=== PATIENT | male | born 1980 | race Two or more races ===

== ENCOUNTER 2019-01-31 23:01 | Emergency (ER) | payer BC, OTHER ==
[~2019-01-31] VITALS: Ht 177.8 cm; Wt 154.4 kg
[2019-02-01 00:39] LABS: BASOPHILS # (AUTO) 0.02 x10^3/uL (0-0.1); BASOPHILS % (AUTO) 0 % (0-1); EOSINOPHILS # (AUTO) 0.35 x10^3/uL (0-0.4); EOSINOPHILS % (AUTO) 3 % (1-7); LYMPHOCYTES # (AUTO) 1.55 x10^3/uL (1-3.4); LYMPHOCYTES % (AUTO) 11 % (22-44); MD NO; MEAN CORPUSCULAR HEMOGLOBIN 31.1 pg (27.5-34.5); MEAN CORPUSCULAR HGB CONC 33.3 g/dL (33.2-36.2); MEAN CORPUSCULAR VOLUME 93.4 fL (81-97); MEAN PLATELET VOLUME 7.5 fL (7.4-10.4); MONOCYTES # (AUTO) 0.65 x10^3/uL (0.2-0.8); MONOCYTES % (AUTO) 5 % (2-9); NEUTROPHILS # (AUTO) 10.98 x10^3/uL (1.8-6.8); NEUTROPHILS % (AUTO) 81 % (42-75); PLATELET COUNT 405 x10^3/uL (130-400); RED BLOOD COUNT 4.86 x10^6/uL (4.38-5.82); RED CELL DISTRIBUTION WIDTH 13.7 % (9.4-14.8)
[2019-02-01 00:50] LABS: ALANINE AMINOTRANSFERASE 36 U/L (12-78); ANION GAP 7 mmol/L (5-15); CALCIUM 9.4 mg/dL (8.5-10.1); CHLORIDE 112 mmol/L (98-107)
[2019-02-01 00:53] LABS: ALKALINE PHOSPHATASE 52 U/L (45-117); BILIRUBIN,TOTAL 0.3 mg/dL (0.2-1.0)
--- NOTE | 2019-02-01 01:17 | NUR ---
URINE SAMPLE SENT. ERP AT PT'S BEDSIDE FOR EVAL
[2019-02-01] MEDS ORDERED: ONDANSETRON 2MG/ML, 2ML IVPush ONE (01:30)
[2019-02-01] MEDS ORDERED: MORPHINE SULFATE 4 MG/ML, 1ML IVPush PRN (01:30)
[2019-02-01] MEDS ORDERED: MORPHINE SULFATE 4 MG/ML, 1ML ONE (01:36)
[2019-02-01] MEDS ORDERED: ONDANSETRON 2MG/ML, 2ML ONE (01:36)
--- NOTE | 2019-02-01 01:40 | NUR ---
PT RESTING ON GURNEY, MONITORS IN PLACE, IV SITE STARTED, PT MEDICATED PER APR, CALL LIGHT WITHIN REACH. AWAITING CT
--- NOTE | 2019-02-01 01:47 | NUR ---
PT TO CT
[2019-02-01] MEDS ORDERED: OMNIPAQUE 350 MG/ML, 150 ML BOTTLE ONE (01:59)
[2019-02-01 02:05] LABS: MICROSCOPIC INDICATED
[2019-02-01 02:06] LABS: CULTURE INDICATED? NO
[2019-02-01] MEDS ORDERED: KETOROLAC 30 MG/1 ML IVPush ONE (02:30)
[2019-02-01] MEDS ORDERED: KETOROLAC 30 MG/1 ML ONE (02:43)
[2019-02-01 03:18] VITALS: BP 130/81
== END 2019-02-01 03:30 | disposition home or self-care (01) ==
LOC: ED 02-01 03:01
DX: N13.2 Hydronephrosis with renal and ureteral calculous obstruction (principal); F17.200 Nicotine dependence, unspecified, uncomplicated; R11.2 Nausea with vomiting, unspecified
CPT/HCPCS: 36415; 74021; 74177; 80053; 81001; 83690; 85025; 96374; 96375; 99284; J1885; J2270; J2405; Q9967

== ENCOUNTER 2019-02-08 07:20 | Emergency (ER) | payer OTHER ==
[~2019-02-08] VITALS: Ht 177.8 cm; Wt 156.8 kg
--- NOTE | 2019-02-08 07:32 | NUR ---
PT AMBULATORY TO ROOM 39 W/ C/O L SIDE FLANK PAIN. STATES HE FEELS "2 DIFFERENT PAINS ON THAT SIDE". PT WAS SEEN HERE AND DX W/ 4 MM KIDNEY STONE ON 02/01/19. PT HAS C/O MID L FLANK PAIN AND NEW C/O GROIN PAIN. PT RESTING ON GURNEY. MONITORS APPLIED. AR REZA AT BEDSIDE.
[2019-02-08] MEDS ORDERED: KETOROLAC 30 MG/1 ML ONE (07:40)
[2019-02-08] MEDS ORDERED: SODIUM CHLORIDE FLUSH 10ML SYR IVF ONE (08:00)
[2019-02-08] MEDS ORDERED: ONDANSETRON 2MG/ML, 2ML IVPush ONE (08:00)
[2019-02-08] MEDS ORDERED: KETOROLAC 30 MG/1 ML IVPush ONE (08:00)
[2019-02-08] MEDS ORDERED: HYDROmorphone 1 MG/ML, 1ML INJ IVPush PRN (08:00)
[2019-02-08 08:11] LABS: MICROSCOPIC INDICATED
[2019-02-08 08:13] LABS: BASOPHILS # (AUTO) 0.08 x10^3/uL (0-0.1); BASOPHILS % (AUTO) 1 % (0-1); EOSINOPHILS # (AUTO) 0.54 x10^3/uL (0-0.4); EOSINOPHILS % (AUTO) 5 % (1-7); LYMPHOCYTES # (AUTO) 2.72 x10^3/uL (1-3.4); LYMPHOCYTES % (AUTO) 26 % (22-44); MD NO; MEAN CORPUSCULAR HEMOGLOBIN 30.6 pg (27.5-34.5); MEAN CORPUSCULAR HGB CONC 33.5 g/dL (33.2-36.2); MEAN CORPUSCULAR VOLUME 91.4 fL (81-97); MEAN PLATELET VOLUME 7.4 fL (7.4-10.4); MONOCYTES # (AUTO) 0.99 x10^3/uL (0.2-0.8); MONOCYTES % (AUTO) 10 % (2-9); NEUTROPHILS # (AUTO) 6.03 x10^3/uL (1.8-6.8); NEUTROPHILS % (AUTO) 58 % (42-75); PLATELET COUNT 391 x10^3/uL (130-400); RED BLOOD COUNT 4.47 x10^6/uL (4.38-5.82); RED CELL DISTRIBUTION WIDTH 13.4 % (9.4-14.8)
[2019-02-08] MEDS ORDERED: ONDANSETRON 2MG/ML, 2ML ONE (08:13)
[2019-02-08] MEDS ORDERED: HYDROmorphone 1 MG/ML, 1ML INJ ONE (08:13)
--- NOTE | 2019-02-08 08:17 | NUR ---
PT STATES SOME RELIEF FROM TORADOL MEDICATION. PAIN WENT FROM 12/30 TO 09/08 AND SENSATION TO CONSTANTLY URINATE HAS SUBSIDED. PT MEDICATED PER APR. RESTING ON [facility]. [facility]. [facility].
[2019-02-08 08:23] LABS: CULTURE INDICATED? NO
[2019-02-08 08:24] LABS: ALBUMIN 3.9 g/dL (3.4-5.0); ANION GAP 7 mmol/L (5-15); CALCIUM 9.1 mg/dL (8.5-10.1); CHLORIDE 111 mmol/L (98-107)
[2019-02-08 08:27] LABS: ALANINE AMINOTRANSFERASE 38 U/L (12-78); ALKALINE PHOSPHATASE 51 U/L (45-117); BILIRUBIN,TOTAL 0.4 mg/dL (0.2-1.0); CREATININE 1.66 mg/dL (0.7-1.3); TOTAL PROTEIN 7.5 g/dL (6.4-8.2)
--- NOTE | 2019-02-08 08:32 | NUR ---
Note greg in EDM - 02/08/19 at 0833 by BNICHOLS PT HAS C/O CP. 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 EKG COMPLETED. AR REZA NOTIFIED.
--- NOTE | 2019-02-08 08:45 | NUR ---
PT CHART REVIEWED AND PLACED FOR RECHECK.
--- NOTE | 2019-02-08 08:51 | NUR ---
DR. VAZQUEZ AT BEDSIDE FOR RE-EVALUATION.
[2019-02-08 09:50] VITALS: BP 105/56
== END 2019-02-08 10:19 | disposition home or self-care (01) ==
LOC: ED 07:38
DX: N13.2 Hydronephrosis with renal and ureteral calculous obstruction (principal)
CPT/HCPCS: 36415; 74018; 76775; 80053; 81001; 85025; 96374; 96375; 99284; J1170; J1885; J2405

== ENCOUNTER 2019-03-09 13:40 | Emergency (ER) | payer OTHER ==
[~2019-03-09] VITALS: Ht 177.8 cm; Wt 157.5 kg
--- NOTE | 2019-03-09 14:20 | NUR ---
PT AMBULATORY TO ROOM 4 W/ C/O R HAND NUMBNESS STARTED TODAY. PT STATES HE BELIEVES IT TO BE SECONDARY TO THE REPETITIVE MOTIONS AT WORK. PT HAS FULL ROM. PT ALSO HAS C/O R KNEE PAIN X 1 WEEK. 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 PT RESTING ON GURNEY. NADN. VSS. WARM BLANKET PROVIDED.
[2019-03-09 14:22] VITALS: BP 116/63
== END 2019-03-09 15:26 | disposition home or self-care (01) ==
LOC: ED 14:35
DX: G56.01 Carpal tunnel syndrome, right upper limb (principal); M10.9 Gout, unspecified
CPT/HCPCS: 29125; 99283